=== PATIENT | male | born 2000 | race Caucasian/White ===

== ENCOUNTER 2019-06-18 08:24 | Emergency (ER) | payer OTHER, SELFPAY ==
[~2019-06-18] VITALS: Ht 177.8 cm; Wt 54.0 kg
[2019-06-18 08:24] VITALS: BP 142/85
[2019-06-18] MEDS ORDERED: FLUCONAZOLE 50MG TABLET PO ONE (09:30)
[2019-06-18] MEDS ORDERED: KETO2CR TOP (09:31)
[2019-06-18] MEDS ORDERED: DIFL200T PO (09:31)
== END 2019-06-18 09:38 | disposition home or self-care (01) ==
LOC: M ED 08:24
DX: B35.6 Tinea cruris (principal)

== ENCOUNTER 2019-07-02 07:05 | Emergency (ER) | payer SELFPAY ==
[~2019-07-02] VITALS: Ht 172.7 cm; Wt 54.6 kg
[~2019-07-02 07:05] MED LIST: DIFL200T PO; KETO2CR TOP
[2019-07-02 07:06] VITALS: BP 131/79
[2019-07-02] MEDS ORDERED: DIFL150T PO (07:45)
[2019-07-02] MEDS ORDERED: CLOTCRE3 TOP (07:45)
== END 2019-07-02 08:02 | disposition home or self-care (01) ==
LOC: M ED 07:05
DX: B35.6 Tinea cruris (principal)

== ENCOUNTER 2019-07-19 07:46 | Emergency (ER) | payer SELFPAY ==
[~2019-07-19] VITALS: Ht 172.7 cm; Wt 54.5 kg
[2019-07-19 07:46] VITALS: BP 142/86
[~2019-07-19 07:46] MED LIST changes: +CLOTCRE3 TOP; +DIFL150T PO
[2019-07-19] MEDS ORDERED: CLOT1CRE71 TOP (08:38)
== END 2019-07-19 08:48 | disposition home or self-care (01) ==
LOC: M ED 07:46
DX: L30.9 Dermatitis, unspecified (principal); Z91.018 Allergy to other foods

== ENCOUNTER 2021-02-27 17:41 | Emergency (ER) | payer SELFPAY ==
[~2021-02-27] VITALS: Ht 175.3 cm; Wt 61.4 kg
[2021-02-27 17:41] VITALS: BP 137/85
[~2021-02-27 17:41] MED LIST changes: +CLOT1CRE71 TOP
== END 2021-02-27 20:51 | disposition left against medical advice (07) ==
LOC: M ED 17:41
DX: Z53.21 Procedure and treatment not carried out due to patient leaving prior to being seen by health care provider (principal)

== ENCOUNTER 2021-03-04 14:54 | Emergency (ER) | payer SELFPAY ==
[~2021-03-04] VITALS: Ht 177.8 cm; Wt 54.8 kg
[2021-03-04] MEDS ORDERED: IBUP200C28 PO (15:03)
--- NOTE | 2021-03-04 18:35 | REP ---
INDICATION: PAIN IN RIGHT CLAVICLE COMPARISON: None. TECHNIQUE: Three views right shoulder. FINDINGS: There is no evidence of acute fracture, dislocation, or intrinsic bone disease.Joint spaces are unremarkable. IMPRESSION: No fracture or dislocation. <Electronically signed by Jordy Oconnor > 03/04/21 [id number]
[2021-03-04 20:29] VITALS: BP 138/68
== END 2021-03-04 20:30 | disposition home or self-care (01) ==
LOC: M ED 14:54
DX: S46.911A Strain of unspecified muscle, fascia and tendon at shoulder and upper arm level, right arm, initial encounter (principal); X50.0XXA Overexertion from strenuous movement or load, initial encounter; Y92.098 Other place in other non-institutional residence as the place of occurrence of the external cause; Y93.B2 Activity, push-ups, pull-ups, sit-ups; Y99.8 Other external cause status

== ENCOUNTER → 2021-03-17 | Outpatient (CLI) | payer SELFPAY ==
[~2021-03-17] MED LIST changes: +IBUP200C28 PO
--- NOTE | 2021-03-17 15:00 | REP ---
INDICATION: RADICULOPATHY. COMPARISON: None. TECHNIQUE: AP, lateral, and open-mouth views FINDINGS: This limited exam shows vertebral body height and alignment to be within normal limits. The disc spaces are symmetric and well maintained throughout. The facet joints appear to be well aligned bilaterally. The dens cannot be evaluated on any of the open mouth views secondary to the superimposition of dentition and or osseous structures on all three views. IMPRESSION: Negative limited exam <Electronically signed by Franky Quinteros > 03/17/21 [id number]
== END ==
LOC: M SOG 14:34
PROVIDERS: ATTEND Orthopaedic Surgery Sports Medicine
DX: M54.12 Radiculopathy, cervical region (principal)

== ENCOUNTER 2021-04-14 08:57 | Emergency (ER) | payer SELFPAY ==
[~2021-04-14] VITALS: Ht 175.3 cm; Wt 55.3 kg
[2021-04-14 08:58] VITALS: BP 118/70
[2021-04-14] MEDS ORDERED: NAPR220C14 PO (09:03)
== END 2021-04-14 09:12 | disposition left against medical advice (07) ==
LOC: M ED 08:57
DX: Z53.21 Procedure and treatment not carried out due to patient leaving prior to being seen by health care provider (principal)

== ENCOUNTER → 2021-04-15 | Outpatient (CLI) | payer SELFPAY ==
[~2021-04-15] MED LIST changes: +NAPR220C14 PO
--- NOTE | 2021-04-15 14:17 | REPVR ---
PROCEDURE INFORMATION: Exam: MR Cervical Spine Without Contrast Exam date and time: 04/15/2021 1:36 PM Age: 20 years old Clinical indication: Radicular pain (radiculopathy); Cervical region; Additional info: Radiculopathy cervical region, impingement RT TECHNIQUE: Imaging protocol: Multiplanar magnetic resonance images of the cervical spine without contrast. COMPARISON: CR SPINE CERVICAL AP/LAT 03/17/2021 2:34 PM FINDINGS: Vertebrae: There is no fracture or listhesis. Aside from a hemangioma at T1, marrow signal is within normal limits. Spinal cord: Normal signal. No cord compression. C2-C3: No significant disc disease. No significant spinal stenosis. C3-C4: No significant disc disease. No significant spinal stenosis. C4-C5: No significant disc disease. No significant spinal stenosis. C5-C6: No significant disc disease. No significant spinal stenosis. C6-C7: No significant disc disease. No significant spinal stenosis. C7-T1: No significant disc disease. No significant spinal stenosis. Soft tissues: Unremarkable. Vertebral arteries: Expected flow voids in the vertebral arteries. IMPRESSION: No acute abnormality or advanced degenerative change. Electronically signed by: Brittney Salazar On 04/15/2021 14:17:06 PM
--- NOTE | 2021-04-15 14:18 | REP ---
INDICATION: RADICULOPATHY CERVICAL REGION, IMPINGEMENT RT SHOU. COMPARISON: 03/04/2021. TECHNIQUE: Coronal oblique T1, T2 fat sat, sagittal oblique T2 fat sat, axial T2 fat sat, gradient echo. FINDINGS: Study is limited due to patient motion. Rotator cuff: There appears to be a small bursal surface tear of the distal supraspinatus tendon. Acromioclavicular joint: Unremarkable. Acromion: Type 2 Biceps Tendon: In bicipital groove, very mild surrounding fluid may represent mild tenosynovitis. Hill Sach's deformity: None. Deltoid muscle: No abnormal signal. Biceps labral complex: Intact. Labrum: No tear. Cartilage: No defects. Bone marrow: No abnormal signal. Joint fluid: No effusion. IMPRESSION: Small bursal surface tear distal supraspinatus tendon. Possible mild biceps tenosynovitis. No definite labral tear. <Electronically signed by Jordy Oconnor > 04/15/21 [id number]
== END ==
LOC: M RAD 12:52
PROVIDERS: ATTEND Orthopaedic Surgery Sports Medicine
DX: M75.41 Impingement syndrome of right shoulder (principal)

== ENCOUNTER 2021-05-21 09:30 | Outpatient (RCR) | payer SELFPAY | END 2021-05-27 | LOC: M PT 09:30 | PROVIDERS: ATTEND Orthopaedic Surgery Sports Medicine | DX: M54.12 Radiculopathy, cervical region (principal); M75.41 Impingement syndrome of right shoulder ==

== ENCOUNTER → 2021-08-08 | Outpatient (CLI) | payer SELFPAY | LOC: M PAIN 08:30 | PROVIDERS: ATTEND Anesthesiology | DX: M25.511 Pain in right shoulder (principal); M75.100 Unspecified rotator cuff tear or rupture of unspecified shoulder, not specified as traumatic; M65.9 Synovitis and tenosynovitis, unspecified; M54.2 Cervicalgia ==

== ENCOUNTER → 2021-11-19 | Outpatient (CLI) | payer MEDICAID, SELFPAY | LOC: M PAIN 13:30 | PROVIDERS: ATTEND Anesthesiology | DX: M25.511 Pain in right shoulder (principal); M79.10 Myalgia, unspecified site; M79.18 Myalgia, other site; M54.2 Cervicalgia; M25.512 Pain in left shoulder ==

== ENCOUNTER → 2021-11-25 | Outpatient (CLI) | payer MEDICAID | LOC: M SOG 09:09 | PROVIDERS: ATTEND Orthopaedic Surgery Hand Surgery | DX: M25.531 Pain in right wrist (principal) ==

== ENCOUNTER → 2023-08-06 | Outpatient (REF) | payer MEDICAID, OTHER ==
[2023-08-06 17:07] LABS: CHLAMYDIA DNA AMPLIFICATION NEGATIVE (NEGATIVE); GC DNA AMPLIFICATION NEGATIVE (NEGATIVE)
== END ==
LOC: M LAB REF 15:18
PROVIDERS: ATTEND Physician Assistant
DX: R30.0 Dysuria (principal)